=== PATIENT | male | born 1990 | race Caucasian/White ===

== ENCOUNTER → 2020-06-16 | Outpatient (CLI) | payer OTHER ==
[2020-06-16 12:34] LABS: BASO # 0.1 (0.02-0.10); EOS # 0.1 (0.04-0.40); EOS % 1.6 % (0.0-4.0); HEMATOCRIT 44.2 % (42.0-52.0); HEMOGLOBIN 14.5 g/dL (13.5-18.0); LYMPH# 3.2 (1.50-4.00); MEAN CELL VOLUME 72 fl (78-100); MEAN CORPUSCULAR HEMOGLOBIN 24 pg (27-31); MEAN CORPUSCULAR HGB CONC 33 g/dL (33-37); MEAN PLATELET VOLUME 9.8 fl (7.4-10.4); MONO # 0.7 (0.20-0.80); NEU # 3.5 (1.40-6.50); PLATELET COUNT 304 K/mm3 (130-400); RED BLOOD COUNT 6.18 M/mm3 (4.20-5.60); WHITE BLOOD COUNT 7.6 K/mm3 (4.8-10.8)
[2020-06-16 12:54] LABS: ALBUMIN 4.8 g/dL (3.5-5.0)
[2020-06-16 12:55] LABS: CALCIUM 9.4 mg/dL (8.3-10.5)
[2020-06-16 12:57] LABS: TOTAL PROTEIN 8.1 g/dL (6.4-8.3)
[2020-06-16 12:58] LABS: TOTAL BILIRUBIN 0.9 mg/dL (0.2-1.2)
== END ==
LOC: LAB 12:22
PROVIDERS: Family Medicine
DX: I10 Essential (primary) hypertension (principal); E78.5 Hyperlipidemia, unspecified

== ENCOUNTER → 2020-11-22 | Outpatient (CLI) | payer BC | LOC: RAD 14:30 | DX: N20.0 Calculus of kidney (principal); Z87.442 Personal history of urinary calculi | CPT/HCPCS: Q9967 ==

== ENCOUNTER → 2020-12-10 | Outpatient (CLI) | payer BC ==
[2020-12-10 14:29] LABS: CALCIUM 9.2 mg/dL (8.3-10.5)
== END ==
LOC: LAB 14:07
DX: N20.0 Calculus of kidney (principal)

== ENCOUNTER → 2021-05-31 | Outpatient (CLI) | payer BC ==
[2021-05-31 16:46] LABS: BASO # 0.06 (0.02-0.10); EOS # 0.13 (0.04-0.40); EOS % 1.5 % (0.0-4.0); HEMATOCRIT 44.4 % (42.0-52.0); HEMOGLOBIN 14.4 g/dL (13.5-18.0); LYMPH# 3.11 (1.50-4.00); MEAN CELL VOLUME 71 fl (78-100); MEAN CORPUSCULAR HEMOGLOBIN 23 pg (27-31); MEAN CORPUSCULAR HGB CONC 32 g/dL (33-37); MEAN PLATELET VOLUME 8.9 fl (7.4-10.4); MONO # 0.71 (0.20-0.80); NEU # 4.56 (1.40-6.50); PLATELET COUNT 270 K/mm3 (130-400); RED BLOOD COUNT 6.24 M/mm3 (4.20-5.60); RED CELL DISTRIBUTION WIDTH 16.7 % (11.5-14.5); WHITE BLOOD COUNT 8.6 K/mm3 (4.8-10.8)
[2021-05-31 17:00] LABS: ALBUMIN 4.6 g/dL (3.5-5.0); POTASSIUM 3.8 mmol/L (3.5-5.1)
[2021-05-31 17:01] LABS: CALCIUM 9.3 mg/dL (8.3-10.5)
[2021-05-31 17:02] LABS: TOTAL PROTEIN 7.9 g/dL (6.4-8.3)
[2021-05-31 17:04] LABS: TOTAL BILIRUBIN 0.9 mg/dL (0.2-1.2)
== END ==
LOC: LAB 16:18
PROVIDERS: Family Medicine
DX: Z00.00 Encounter for general adult medical examination without abnormal findings (principal); D50.9 Iron deficiency anemia, unspecified; E78.5 Hyperlipidemia, unspecified; Z80.42 Family history of malignant neoplasm of prostate; Z87.442 Personal history of urinary calculi

== ENCOUNTER → 2021-06-15 | Outpatient (CLI) | payer BC | LOC: RAD 08:52 | DX: R93.429 Abnormal radiologic findings on diagnostic imaging of unspecified kidney (principal); Z87.442 Personal history of urinary calculi ==

== ENCOUNTER → 2022-06-07 | Outpatient (CLI) | payer BC ==
[2022-06-07 09:08] LABS: BASO # 0.05 K/mm3 (0.02-0.10); EOS # 0.09 K/mm3 (0.04-0.40); EOS % 1.3 % (0.0-4.0); HEMATOCRIT 45.5 % (42.0-52.0); HEMOGLOBIN 14.6 g/dL (13.5-18.0); LYMPH# 2.01 K/mm3 (1.50-4.00); MEAN CELL VOLUME 72 fl (78-100); MEAN CORPUSCULAR HEMOGLOBIN 23 pg (27-31); MEAN CORPUSCULAR HGB CONC 32 g/dL (33-37); MEAN PLATELET VOLUME 9.4 fl (7.4-10.4); MONO # 0.73 K/mm3 (0.20-0.80); PLATELET COUNT 275 K/mm3 (130-400); RED BLOOD COUNT 6.31 M/mm3 (4.20-5.60); RED CELL DISTRIBUTION WIDTH 16.9 % (11.5-14.5); WHITE BLOOD COUNT 6.7 K/mm3 (4.8-10.8)
[2022-06-07 09:27] LABS: ALBUMIN 4.7 g/dL (3.5-5.0); POTASSIUM 4.1 mmol/L (3.5-5.1)
[2022-06-07 09:28] LABS: CALCIUM 9.8 mg/dL (8.3-10.5)
[2022-06-07 09:29] LABS: TOTAL PROTEIN 8.2 g/dL (6.4-8.3)
[2022-06-09 06:26] LABS: CORN ALLERGEN COUNT <0.10 kU/L (()); EGG WHITE ALLERGEN COUNT <0.10 kU/L (()); MILK ALLERGEN COUNT <0.10 kU/L (()); PEANUT ALLERGEN COUNT <0.10 kU/L (()); RICE ALLERGEN COUNT <0.10 kU/L (()); WHEAT ALLERGEN COUNT <0.10 kU/L (())
[2022-06-09 06:27] LABS: BAKERS YEAST ALLERGEN COUNT <0.10 kU/L (()); ORANGE ALLERGEN COUNT <0.10 kU/L (()); SOYBEAN ALLERGEN COUNT <0.10 kU/L (()); STRAWBERRY ALLERGEN COUNT <0.10 kU/L (()); TOMATO ALLERGEN COUNT <0.10 kU/L (())
== END ==
LOC: LAB 08:46
PROVIDERS: Family Medicine
DX: Z00.00 Encounter for general adult medical examination without abnormal findings (principal); E78.5 Hyperlipidemia, unspecified; I10 Essential (primary) hypertension; L64.9 Androgenic alopecia, unspecified; K59.09 Other constipation; Z87.442 Personal history of urinary calculi